=== PATIENT | male | born 1950 | race Caucasian/White ===

== ENCOUNTER 2016-06-25 18:58 | Emergency (ER) | payer MEDICARE | END 2016-06-25 23:01 | disposition home or self-care (01) | LOC: ER 18:58 | DX: G40.209 Localization-related (focal) (partial) symptomatic epilepsy and epileptic syndromes with complex partial seizures, not intractable, without status epilepticus (principal); Z79.899 Other long term (current) drug therapy; Z79.82 Long term (current) use of aspirin; Z79.01 Long term (current) use of anticoagulants; Z95.1 Presence of aortocoronary bypass graft | CPT/HCPCS: 36415; 80053; 81003; 82947; 85025 ==